=== PATIENT | male | born 1965 | race Caucasian/White ===

== ENCOUNTER → 2017-01-13 | Outpatient (CLI) | payer OTHER ==
--- NOTE | 2017-01-14 15:39 | CR ---
EXAM DATE: 01/13/17 PATIENT'S AGE: 51 Patient: REJI JEFFERSONKATHYA Facility: [place], [place] Site . Site : 1965 Study: XRay Extremity thumb [id number]/9/2017 4:36:00 PM Ordering Physician: Rafael Birto Final Report: Indication: Hyperextension injury an December. Technique: Three views of the right thumb. Comparison: None. Findings: No fracture or subluxation. 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 Otherwise unremarkable. Impression: Unremarkable except for mild 1st MCP joint osteoarthritis. Dictated by Reji López MD @ Jan 14 2017 11:59AM (Electronic Signature) Report Signed by Proxy. OLIVIA
== END | disposition home or self-care (01) ==
LOC: MW.CHFP 16:18
PROVIDERS: ATTEND Physician Assistant
DX: S69.91XA Unspecified injury of right wrist, hand and finger(s), initial encounter (principal); M19.031 Primary osteoarthritis, right wrist
CPT/HCPCS: 73140-26-F5; 73140-F5

== ENCOUNTER 2020-06-22 15:42 | Observation (INO) | payer BC, OTHER ==
[2020-06-22] MEDS ORDERED: Sodium Chloride 0.9% 10 ML Syringe FLUSH PRN (16:08)
[2020-06-22] MEDS ORDERED: Sodium Chloride 0.9% 2.5 ML Syringe FLUSH PRN (16:08)
[2020-06-22] MEDS ORDERED: Sodium Chloride 0.9% 1,000 ML IV ONE (16:19)
--- NOTE | 2020-06-22 16:40 | EDM.PDOC ---
ED HPI GENERAL MEDICAL PROBLEM - General Chief Complaint: Fever Stated Complaint: HIGH FEVER/DEHYDRATED Time Seen by Provider: 06/22/20 16:07 Source of Information: Reports: Patient History Limitations: Reports: No Limitations - History of Present Illness INITIAL COMMENTS - FREE TEXT/NARRATIVE: HISTORY AND PHYSICAL: History of present illness: Patient is a 54-year-old male who presents to the emergency room with complaints of cough, shortness of breath and weakness over the past 6 to 7 days. He states he has not had an appetite and has not been eating. History of diabetes, concerned his blood sugars may be low and that he is dehydrated. He was seen today at our respiratory clinic and swabbed for COVID although he will not get these results for several days. He was called after he was discharged from the respiratory clinic and informed that he could have a lung infection and that they prescribed azithromycin, they were concerned he needed IV fluids and his blood sugar monitored. He states he was too weak and fatigued to go fill this prescription and came to the emergency room. Patient denies any fever, chills, headache, change in vision, syncope or near syncope. Denies any chest pain, back pain, abdominal pain, nausea, vomiting, diarrhea, constipation or dysuria. Has not noted any blood in urine or stool. Patient has been eating and drinking appropriately. Review of systems: As per history of present illness and below otherwise all systems reviewed and negative. Past medical history: As per history of present illness and as reviewed below otherwise noncontributory. Surgical history: As per history of present illness and as reviewed below otherwise noncontributory. Social history: See social history for further information Family history: As per history of present illness and as reviewed below otherwise noncontributory. Physical exam: General: Well developed and well nourished. Alert and orientated x 3. Nontoxic in appearance and in no acute distress. Vital signs are stable and have been reviewed by me. Nursing notes were reviewed. HEENT: Atraumatic, normocephalic, pupils equal and reactive bilaterally, negative for conjunctival pallor or scleral icterus, mucous membranes dry/tachy, trachea midline. No drooling or trismus noted. No meningeal signs. No hot potato voice noted. Lungs: Slightly diminished bilaterally to auscultation, breath sounds equal bilaterally, chest nontender. Normal work of breathing, no accessory muscles used. Heart: S1S2, regular rate and rhythm without overt murmur Abdomen: Soft, nondistended, nontender. Negative for masses or costovertebral tenderness. Pelvis: Stable nontender. Skin: Intact, warm, dry. No lesions or rashes noted. Hematologic: No petechiae or purpra. Mucosa appropriate color and normal nail bed color and refill. Extremities: Atraumatic, moves all extremities per self without difficulty or deficits, negative for cords or calf pain. Neurovascular unremarkable. Neuro: Awake, alert, oriented. Cranial nerves II through XII unremarkable. Cerebellum unremarkable. Motor and sensory unremarkable throughout. Exam nonfocal. Psychiatric: Mood and affect are appropriate. Normal thought process. Answering questions appropriately. Notes: Chest x-ray that was done earlier this afternoon shows minimal patchy airspace opacity at both bases. Could represent atelectasis or inflammatory. Pneumonia/pneumonitis, including viral disease. He has elevated D.Dimer, CT chest has been ordered to r/o PE and further investigate the CXR findings. + COVID screening, which I suspected. Patient states he is very weak and feels too weak to go home. CT shows no sign of PE. Findings are typical of COVID-19 infection, most prominently involving the inferior portion of the right lower lobe, but with involvement of both lobes in both lungs. Triple-vessel coronary calcification noted. Vital signs remained stable. Repeat blood sugar is 300 after liter of fluids. I have spoken with the patient and discussed today's findings, in addition to providing specific details for plan of care. Reassessment at the time of disposition demonstrates that the patient is in no acute distress. Dr. Morales was consulted on this patient. She is agreeable to keeping this patient for further care and management. Diagnostics: CBC, CMP, COVID, DDimer [employer]: IV fluids Impression: COVID-19 Weakness Plan: [facility] with telemetry Definitive disposition and diagnosis as appropriate pending reevaluation and review of above. - Related Data Allergies Allergy/AdvReac Type Severity Reaction Status Date / Time bee venom protein (honey bee) Allergy Anaphylactic Verified 06/22/20 16:18 Shock Home Meds: Home Meds Bitter Melon Extract 1,700 gm MC BID 04/15/14 [History] Liraglutide [Victoza 3-Iker] 1.8 mg .XX DAILY 04/15/14 [History] Pioglitazone HCl [Actos] 30 mg PO DAILY 04/15/14 [History] atorvaSTATin [Lipitor] 20 mg PO BEDTIME 04/15/14 [History] glyBURIDE/Metformin [glyBURIDE/Metformin 5-500 MG] 2 tab PO BID 04/15/14 [History] lisinopriL [Prinivil] 5 mg PO DAILY 04/15/14 [History] Diclofenac Sodium [Voltaren 1%] 1 applic TOP BID PRN #1 tube 09/06/18 [Rx] Past Medical History HEENT History: Reports: Impaired Vision Endocrine/Metabolic History: Reports: Diabetes, Type II - Infectious Disease History Infectious Disease History: Reports: Chicken Pox Social & Family History - Family History Family Medical History: Noncontributory - Caffeine Use Caffeine Use: Reports: Coffee, Energy Drinks ED ROS GENERAL - Review of Systems Review Of Systems: Comprehensive ROS is negative, except as noted in HPI. ED EXAM, GENERAL - Physical Exam Exam: See Below (See dictation) Course - Vital Signs Last Recorded V/S: Last Vital Signs Temp 97.4 F 06/22/20 17:57 Pulse 108 H 06/22/20 17:57 Resp 20 06/22/20 17:57 BP 139/78 06/22/20 17:57 Pulse Ox 97 06/22/20 17:57 - Orders/Labs/Meds Orders: Active Orders 24 hr Category Date Time Status Admission Status [Patient Status] [ADT] Stat ADT 06/22/20 19:31 Ordered Blood Glucose Check, Bedside [RC] ONETIME Care 06/22/20 18:29 Active Sodium Chloride 0.9% [Saline Flush] Med 06/22/20 16:08 Active 10 ml FLUSH ASDIRECTED PRN Sodium Chloride 0.9% [Saline Flush] Med 06/22/20 16:08 Active 2.5 ml FLUSH ASDIRECTED PRN Saline Lock Insert [OM.PC] Stat Oth 06/22/20 16:08 Ordered Medication Orders Sodium Chloride (Saline Flush) 10 ml FLUSH ASDIRECTED PRN PRN Reason: Keep Vein Open Last Admin: 06/22/20 17:10 Dose: 10 ml Documented by: MURDNIC Sodium Chloride (Saline Flush) 2.5 ml FLUSH ASDIRECTED PRN PRN Reason: Keep Vein Open Last Admin: 06/22/20 17:10 Dose: 2.5 ml Documented by: GINGER Labs: Laboratory Tests 06/22/20 06/22/20 06/22/20 Range/Units 16:36 17:09 17:09 WBC 7.13 (4.0-11.0) K/uL RBC 4.88 (4.50-5.90) M/uL Hgb 14.3 (13.0-17.0) g/dL Hct 41.0 (38.0-50.0) % MCV 84.0 (80.0-98.0) fL MCH 29.3 (27.0-32.0) pg MCHC 34.9 (31.0-37.0) g/dL RDW Std Deviation 39.5 (28.0-62.0) fl RDW Coeff of Skye 13 (11.0-15.0) % Plt Count 206 (150-400) K/uL MPV 9.70 (7.40-12.00) fL Neut % (Auto) 82.4 H (48.0-80.0) % Lymph % (Auto) 10.2 L (16.0-40.0) % [place]osa % (Auto) 7.3 (0.0-15.0) % Eos % (Auto) 0.0 (0.0-7.0) % Baso % (Auto) 0.1 (0.0-1.5) % Neut # (Auto) 5.9 H (1.4-5.7) K/uL Lymph # (Auto) 0.7 (0.6-2.4) K/uL [place] # (Auto) 0.5 (0.0-0.8) K/uL Eos # (Auto) 0.0 (0.0-0.7) K/uL Baso # (Auto) 0.0 (0.0-0.1) K/uL Nucleated RBC % 0.0 /100WBC Nucleated RBCs # 0 K/uL D-Dimer, Quantitative (0.0-0.50) mg/L FEU VBG pH 7.29 L (7.31-7.41) VBG pCO2 37 (35-45) mmHG VBG pO2 35 (30-40) mmHG VBG HCO3 18 L (22-30) mEq/L VBG Total CO2 16 L (41-51) mmol/L VBG Base Excess -8.4 L (-3.0-3.0) Sodium (136-148) mmol/L Potassium (3.5-5.1) mmol/L Chloride (98-107) mmol/L Carbon Dioxide (21.0-32.0) mmol/L BUN (7.0-18.0) mg/dL Creatinine (0.8-1.3) mg/dL Est Cr Clr Drug Dosing mL/min Estimated GFR (MDRD) ml/min Glucose (74-106) mg/dL Calcium (8.5-10.1) mg/dL Total Bilirubin (0.2-1.0) mg/dL AST (15-37) IU/L ALT (14-63) IU/L Alkaline Phosphatase (46-116) U/L Total Protein (6.4-8.2) g/dL Albumin (3.4-5.0) g/dL Globulin (2.6-4.0) g/dL Albumin/Globulin Ratio (0.9-1.6) SARS-CoV-2 RNA (MARYURI) POSITIVE H (NEGATIVE) 06/22/20 06/22/20 Range/Units 17:09 17:09 WBC (4.0-11.0) K/uL RBC (4.50-5.90) M/uL Hgb (13.0-17.0) g/dL Hct (38.0-50.0) % MCV (80.0-98.0) fL MCH (27.0-32.0) pg MCHC (31.0-37.0) g/dL RDW Std Deviation (28.0-62.0) fl RDW Coeff of Skye (11.0-15.0) % Plt Count (150-400) K/uL MPV (7.40-12.00) fL Neut % (Auto) (48.0-80.0) % Lymph % (Auto) (16.0-40.0) % [place]osa % (Auto) (0.0-15.0) % Eos % (Auto) (0.0-7.0) % Baso % (Auto) (0.0-1.5) % Neut # (Auto) (1.4-5.7) K/uL Lymph # (Auto) (0.6-2.4) K/uL [place] # (Auto) (0.0-0.8) K/uL Eos # (Auto) (0.0-0.7) K/uL Baso # (Auto) (0.0-0.1) K/uL Nucleated RBC % /100WBC Nucleated RBCs # K/uL D-Dimer, Quantitative 1.58 H (0.0-0.50) mg/L FEU VBG pH (7.31-7.41) VBG pCO2 (35-45) mmHG VBG pO2 (30-40) mmHG VBG HCO3 (22-30) mEq/L VBG Total CO2 (41-51) mmol/L VBG Base Excess (-3.0-3.0) Sodium 130 L (136-148) mmol/L Potassium 4.4 (3.5-5.1) mmol/L Chloride 94 L (98-107) mmol/L Carbon Dioxide 18.3 L (21.0-32.0) mmol/L BUN 19 H (7.0-18.0) mg/dL Creatinine 1.0 (0.8-1.3) mg/dL Est Cr Clr Drug Dosing 97.04 mL/min Estimated GFR (MDRD) > 60.0 ml/min Glucose 337 H (74-106) mg/dL Calcium 8.8 (8.5-10.1) mg/dL Total Bilirubin 0.6 (0.2-1.0) mg/dL AST 17 (15-37) IU/L ALT 28 (14-63) IU/L Alkaline Phosphatase 124 H (46-116) U/L Total Protein 7.5 (6.4-8.2) g/dL Albumin 3.0 L (3.4-5.0) g/dL Globulin 4.5 H (2.6-4.0) g/dL Albumin/Globulin Ratio 0.7 L (0.9-1.6) SARS-CoV-2 RNA (MARYURI) (NEGATIVE) Meds: Medications Generic Name Dose Route Start Last Admin Trade Name Freq PRN Reason Stop Dose Admin Sodium Chloride 10 ml 06/22/20 16:08 06/22/20 17:10 Saline Flush FLUSH 10 ml ASDIRECTED PRN Administration Keep Vein Open Sodium Chloride 2.5 ml 06/22/20 16:08 06/22/20 17:10 Saline Flush FLUSH 2.5 ml ASDIRECTED PRN Administration Keep Vein Open Discontinued Medications Generic Name Dose Route Start Last Admin Trade Name Freq PRN Reason Stop Dose Admin Sodium Chloride 1,000 mls @ 999 mls/hr 06/22/20 16:19 06/22/20 17:10 Normal Saline IV 06/22/20 17:19 999 mls/hr STAT ONE Administration Iopamidol 100 ml 06/22/20 18:20 06/22/20 18:20 Isovue Multipack-370 (76%) IVPUSH 06/22/20 18:21 100 ml ONETIME ONE Administration Departure - Departure Time of Disposition: 19:37 Disposition: Refer to Observation Clinical Impression: COVID-19, Weakness - Discharge Information Referrals: PCP,None [Primary Care Provider] - Forms: ED Department Discharge Sepsis Event Note (ED) - Evaluation Sepsis Screening Result: No Definite Risk - Focused Exam Vital Signs: Vital Signs Temp Pulse Resp BP Pulse Ox 06/22/20 17:57 97.4 F 108 H 20 139/78 97 06/22/20 16:15 97.0 F 119 H 16 140/72 96 - My Orders Last 24 Hours: My Active Orders 06/22/20 16:08 Sodium Chloride 0.9% [Saline Flush] 10 ml FLUSH ASDIRECTED PRN Sodium Chloride 0.9% [Saline Flush] 2.5 ml FLUSH ASDIRECTED PRN Saline Lock Insert [OM.PC] Stat 06/22/20 18:29 Blood Glucose Check, Bedside [RC] ONETIME 06/22/20 19:31 Admission Status [Patient Status] [ADT] Stat - Assessment/Plan Last 24 Hours: My Active Orders 06/22/20 16:08 Sodium Chloride 0.9% [Saline Flush] 10 ml FLUSH ASDIRECTED PRN Sodium Chloride 0.9% [Saline Flush] 2.5 ml FLUSH ASDIRECTED PRN Saline Lock Insert [OM.PC] Stat 06/22/20 18:29 Blood Glucose Check, Bedside [RC] ONETIME 06/22/20 19:31 Admission Status [Patient Status] [ADT] Stat
[2020-06-22 17:43] LABS: BLOOD UREA NITROGEN,BUN 19 mg/dL (7.0-18.0); CARBON DIOXIDE,CO2 18.3 mmol/L (21.0-32.0); CHLORIDE,CL 94 mmol/L (98-107); GLUCOSE RANDOM 337 mg/dL (74-106); POTASSIUM,K 4.4 mmol/L (3.5-5.1); SODIUM,NA 130 mmol/L (136-148)
[2020-06-22] MEDS ORDERED: Iopamidol 755 MG/ML 500 ML Multipack Bottle IVPUSH ONE (18:20)
--- NOTE | 2020-06-22 19:28 | CT ---
INDICATION: Dyspnea. COVID-19 positive. COMPARISON: Chest radiograph from earlier today at 1230 hours. TECHNIQUE: CT examination of the chest was performed with the uneventful intravenous administration of 100 cc of Isovue 370 while 1 and 3 mm thick axial sections were obtained through the pulmonary arteries. Please note that all CT scans at this facility use dose modulation, iterative reconstruction, and/or weight-based dosing when appropriate to reduce radiation dose to as low as reasonably achievable. FINDINGS: : There is no sign of pulmonary embolism, with normal enhancement and branching of the pulmonary arteries. Moderate patchy areas of crazy paving peripheral consolidation in the posterior right lower lobe inferiorly, with smaller, moderate areas of peripheral crazy paving consolidation in the superior segments of both lower lobes and the infrahilar left lower lobe. Additional moderate ground-glass consolidation in the posterior aspect of the left upper lobe in the infrahilar region extending to the major fissure. Smaller patchy central and peripheral ground-glass infiltrates in the right upper lobe and right middle lobe. Relative sparing of the superior portion of the left upper lobe. Findings are typical for COVID-19 infection. Moderate subcarinal lymphadenopathy with a lymph node with short axis diameter of 15 millimeters. Mild prominence of left perivascular lymph nodes, not large enough to be described as lymphadenopathy. Mild right superior hilar lymphadenopathy with a lymph node with short axis diameter of 11 millimeters. Top normal left inferior hilar lymph node with short axis diameter of 10 millimeters. The lymphadenopathy is nonspecific and is probably reactive. There is prominent LAD and moderate LCX coronary calcification. There is mild RCA coronary calcification. The heart is otherwise normal in appearance for the patient`s age, as are the aorta and other ascending great vessels. There is no sign of supraclavicular or axillary mass or adenopathy. The visualized superior liver, spleen, pancreas, kidneys, and adrenals are normal in appearance. Clips are seen in the gall bladder fossa from cholecystectomy. The osseous structures are normal in appearance for the patient`s age. IMPRESSION: No sign of pulmonary embolism. Findings typical of COVID-19 infection, most prominently involving the inferior portion of the right lower lobe, but with involvement of all the lobes in both lungs as described above. Mild subcarinal mediastinal and right hilar lymphadenopathy, probably reactive. Triple-vessel coronary calcification, including prominent LAD calcification. Status post cholecystectomy. Please note that all CT scans at this facility use dose modulation, iterative reconstruction, and/or weight-based dosing when appropriate to reduce radiation dose to as low as reasonably achievable. Dictated by Luther Antunez MD @ Jun 22 2020 7:18PM Signed by Dr. Luther Antunez @ Jun 22 2020 7:27PM
[2020-06-22] MEDS ORDERED: 50% Dextrose in Water 50 ML Syringe IV PRN ×3 (19:40→21:45)
[2020-06-22] MEDS ORDERED: Glucagon,Human Recombinant 1 MG Vial IM PRN ×3 (19:40→21:45)
--- NOTE | 2020-06-22 19:41 | PCM.HP.2 ---
H&P History of Present Illness - General Date of Service: 06/22/20 Admit Problem/Dx: Admission Diagnosis/Problem Admission Diagnosis/Problem Viral respiratory infection - History of Present Illness Initial Comments - Free Text/Narative: Patient is a 54-year-old male with PMH of DM, CAD, HLD who presents to the e mergency room with complaints of cough, shortness of breath and weakness over last 1 week, patient states that he feels very weak , he has not been eating and drinking as much. States it started with cough and congestion, with some fever, tried OTC meds but his fever didnt break and symptoms got worse. He thought "something wasn't right" so he went to the respiratory clinic today to get tested for covid, results pending, He was called after he was discharged from the respiratory clinic and informed that he could have a lung infection and that they prescribed azithromycin, He states he was too weak and fatigued to go fill this prescription and came to the emergency room. Patient denies any fever, chills, headache, change in vision, syncope or near syncope, any chest pain, back pain, abdominal pain, nausea, vomiting, diarrhea, constipation or dysuria. Has not noted any blood in urine or stool. Patient has been eating and drinking appropriately. Chest x-ray that was done earlier this afternoon shows minimal patchy airspace opacity at both bases. Could represent atelectasis or inflammatory. Pneumonia/pneumonitis, including viral disease. He has elevated D.Dimer, + COVID screening, CT shows no sign of PE. Findings are typical of COVID-19 infection, most prominently involving the inferior portion of the right lower lobe, but with involvement of both lobes in both lungs. Triple-vessel coronary calcification noted. Vital signs remained stable. Repeat blood sugar is [address] liter of fluids. which I suspected. Patient states he is very weak and feels too weak to go home and fears his blood sugars will drop since he isnt eating much. hence patient was admitted for further management. - Related Data Allergies/Adverse Reactions: Allergies Allergy/AdvReac Type Severity Reaction Status Date / Time bee venom protein (honey bee) Allergy Anaphylactic Verified 06/22/20 20:45 Shock Home Medications: Home Meds Bitter Melon Extract 1,700 gm MC BID 04/15/14 [History] Pioglitazone HCl [Actos] 30 mg PO DAILY 04/15/14 [History] atorvaSTATin [Lipitor] 80 mg PO BEDTIME 04/15/14 [History] glyBURIDE/Metformin [glyBURIDE/Metformin 5-500 MG] 2 tab PO BID 04/15/14 [History] Diclofenac Sodium [Voltaren 1%] 1 applic TOP BID PRN #1 tube 09/06/18 [Rx] Insulin Detemir [Levemir] 80 unit SUBCUT DAILY 06/22/20 [History] Losartan Potassium 50 mg PO 06/22/20 [History] Omeprazole 20 mg PO 06/22/20 [History] Past Medical History HEENT History: Reports: Impaired Vision Endocrine/Metabolic History: Reports: Diabetes, Type II - Infectious Disease History Infectious Disease History: Reports: Chicken Pox Social & Family History - Family History Family Medical History: Noncontributory - Tobacco Use Tobacco Use Status *Q: Never Tobacco User - Caffeine Use Caffeine Use: Reports: Coffee, Energy Drinks - Recreational Drug Use Recreational Drug Use: No H&P Review of Systems - Review of Systems: Review Of Systems: Comprehensive ROS is negative, except as noted in HPI. Exam - Exam Exam: See Below - Vital Signs Vital Signs: Last Vital Signs Temp 36.3 C 06/22/20 17:57 Pulse 108 H 06/22/20 17:57 Resp 20 06/22/20 17:57 BP 139/78 06/22/20 17:57 Pulse Ox 97 06/22/20 17:57 Weight: 104.78 kg - Exam Quality Assessment: No: Supplemental Oxygen General: Alert, Oriented HEENT: Conjunctiva Clear Neck: Supple, Trachea Midline Lungs: Clear to Auscultation, Normal Respiratory Effort, Rales Cardiovascular: Regular Rate, Regular Rhythm, Normal S1, Normal S2 GI/Abdominal Exam: Normal Bowel Sounds, Soft, Non-Tender - Patient Data Lab Results Last 24 hrs: Laboratory Results - last 24 hr 06/22/20 06/22/20 06/22/20 Range/Units 16:36 17:09 17:09 WBC 7.13 (4.0-11.0) K/uL RBC 4.88 (4.50-5.90) M/uL Hgb 14.3 (13.0-17.0) g/dL Hct 41.0 (38.0-50.0) % MCV 84.0 (80.0-98.0) fL MCH 29.3 (27.0-32.0) pg MCHC 34.9 (31.0-37.0) g/dL RDW Std Deviation 39.5 (28.0-62.0) fl RDW Coeff of Skye 13 (11.0-15.0) % Plt Count 206 (150-400) K/uL MPV 9.70 (7.40-12.00) fL Neut % (Auto) 82.4 H (48.0-80.0) % Lymph % (Auto) 10.2 L (16.0-40.0) % [place] % (Auto) 7.3 (0.0-15.0) % Eos % (Auto) 0.0 (0.0-7.0) % Baso % (Auto) 0.1 (0.0-1.5) % Neut # (Auto) 5.9 H (1.4-5.7) K/uL Lymph # (Auto) 0.7 (0.6-2.4) K/uL [place] # (Auto) 0.5 (0.0-0.8) K/uL Eos # (Auto) 0.0 (0.0-0.7) K/uL Baso # (Auto) 0.0 (0.0-0.1) K/uL Nucleated RBC % 0.0 /100WBC Nucleated RBCs # 0 K/uL D-Dimer, Quantitative (0.0-0.50) mg/L FEU VBG pH 7.29 L (7.31-7.41) VBG pCO2 37 (35-45) mmHG VBG pO2 35 (30-40) mmHG VBG HCO3 18 L (22-30) mEq/L VBG Total CO2 16 L (41-51) mmol/L VBG Base Excess -8.4 L (-3.0-3.0) Sodium (136-148) mmol/L Potassium (3.5-5.1) mmol/L Chloride (98-107) mmol/L Carbon Dioxide (21.0-32.0) mmol/L BUN (7.0-18.0) mg/dL Creatinine (0.8-1.3) mg/dL Est Cr Clr Drug Dosing mL/min Estimated GFR (MDRD) ml/min Glucose (74-106) mg/dL Calcium (8.5-10.1) mg/dL Total Bilirubin (0.2-1.0) mg/dL AST (15-37) IU/L ALT (14-63) IU/L Alkaline Phosphatase (46-116) U/L Total Protein (6.4-8.2) g/dL Albumin (3.4-5.0) g/dL Globulin (2.6-4.0) g/dL Albumin/Globulin Ratio (0.9-1.6) SARS-CoV-2 RNA (MARYURI) POSITIVE H (NEGATIVE) 06/22/20 06/22/20 Range/Units 17:09 17:09 WBC (4.0-11.0) K/uL RBC (4.50-5.90) M/uL Hgb (13.0-17.0) g/dL Hct (38.0-50.0) % MCV (80.0-98.0) fL MCH (27.0-32.0) pg MCHC (31.0-37.0) g/dL RDW Std Deviation (28.0-62.0) fl RDW Coeff of Skye (11.0-15.0) % Plt Count (150-400) K/uL MPV (7.40-12.00) fL Neut % (Auto) (48.0-80.0) % Lymph % (Auto) (16.0-40.0) % [place] % (Auto) (0.0-15.0) % Eos % (Auto) (0.0-7.0) % Baso % (Auto) (0.0-1.5) % Neut # (Auto) (1.4-5.7) K/uL Lymph # (Auto) (0.6-2.4) K/uL [place] # (Auto) (0.0-0.8) K/uL Eos # (Auto) (0.0-0.7) K/uL Baso # (Auto) (0.0-0.1) K/uL Nucleated RBC % /100WBC Nucleated RBCs # K/uL D-Dimer, Quantitative 1.58 H (0.0-0.50) mg/L FEU VBG pH (7.31-7.41) VBG pCO2 (35-45) mmHG VBG pO2 (30-40) mmHG VBG HCO3 (22-30) mEq/L VBG Total CO2 (41-51) mmol/L VBG Base Excess (-3.0-3.0) Sodium 130 L (136-148) mmol/L Potassium 4.4 (3.5-5.1) mmol/L Chloride 94 L (98-107) mmol/L Carbon Dioxide 18.3 L (21.0-32.0) mmol/L BUN 19 H (7.0-18.0) mg/dL Creatinine 1.0 (0.8-1.3) mg/dL Est Cr Clr Drug Dosing 97.04 mL/min Estimated GFR (MDRD) > 60.0 ml/min Glucose 337 H (74-106) mg/dL Calcium 8.8 (8.5-10.1) mg/dL Total Bilirubin 0.6 (0.2-1.0) mg/dL AST 17 (15-37) IU/L ALT 28 (14-63) IU/L Alkaline Phosphatase 124 H (46-116) U/L Total Protein 7.5 (6.4-8.2) g/dL Albumin 3.0 L (3.4-5.0) g/dL Globulin 4.5 H (2.6-4.0) g/dL Albumin/Globulin Ratio 0.7 L (0.9-1.6) SARS-CoV-2 RNA ([facility]) (NEGATIVE) Result Diagrams: 06/22/20 17:09 06/22/20 17:09 Sepsis Event Note - Evaluation Sepsis Screening Result: No Definite Risk - Focused Exam Vital Signs: Vital Signs Temp Pulse Resp BP Pulse Ox 06/22/20 17:57 36.3 C 108 H 20 139/78 97 06/22/20 16:15 36.1 C 119 H 16 140/72 96 - Problem List (1) Diabetes SNOMED Code(s): 99268001 ICD Code: E11.9 - TYPE 2 DIABETES MELLITUS WITHOUT COMPLICATIONS Status: Acute Current Visit: Yes (2) CAD (coronary artery disease) SNOMED Code(s): 07152216 ICD Code: I25.10 - ATHSCL HEART DISEASE OF [place] CORONARY ARTERY W/O ANG PCTRS Status: Acute Current Visit: Yes (3) COVID-19 SNOMED Code(s): 940682427 ICD Code: U07.1 - COVID-19 Status: Acute Current Visit: Yes (4) Weakness SNOMED Code(s): 70687233 ICD Code: R53.1 - WEAKNESS Status: Acute Current Visit: Yes Problem List Initiated/Reviewed/Updated: Yes Orders Last 24hrs: Active Orders 24 hr Category Date Time Status Admission Status [Patient Status] [ADT] Stat ADT 06/22/20 19:31 Active Blood Glucose Check, Bedside [RC] ONETIME Care 06/22/20 18:29 Active TROPONIN I [CHEM] Stat Lab 06/22/20 19:40 Ordered Dextrose 50% in Water Med 06/22/20 19:40 Ordered 50 ml IV ASDIRECTED PRN Glucagon,Human Recombinant [GlucaGen] Med 06/22/20 19:40 Ordered 1 mg IM ASDIRECTED PRN Insulin Aspart [NovoLOG] Med 06/23/20 07:30 Ordered See Protocol SUBCUT TIDAC Sodium Chloride 0.9% [Saline Flush] Med 06/22/20 16:08 Active 10 ml FLUSH ASDIRECTED PRN Sodium Chloride 0.9% [Saline Flush] Med 06/22/20 16:08 Active 2.5 ml FLUSH ASDIRECTED PRN Saline Lock Insert [OM.PC] Stat Oth 06/22/20 16:08 Ordered Medication Orders Sodium Chloride (Saline Flush) 10 ml FLUSH ASDIRECTED PRN PRN Reason: Keep Vein Open Last Admin: 06/22/20 17:10 Dose: 10 ml Documented by: GINGER Sodium Chloride (Saline Flush) 2.5 ml FLUSH ASDIRECTED PRN PRN Reason: Keep Vein Open Last Admin: 06/22/20 17:10 Dose: 2.5 ml Documented by: MURDNIC Assessment/Plan Comment:: 54 y/o M admitted for genralized weankess, loss of appetite COVID positive IV fluids 1 lts total SSI Levemir at bedtime Lovenox for DVT ppx Accu-check TID with meals cont supportive care
[2020-06-22] MEDS ORDERED: Lactated Ringers 1,000 ML IV SCH (19:45)
[2020-06-22] MEDS ORDERED: Insulin Aspart 100 Units/ML 3 ML Pen SUBCUT ONE (21:30)
[2020-06-22] MEDS ORDERED: Albuterol/Ipratropium 4 GM Inhalation Spray INH PRN (22:09)
[2020-06-22] MEDS ORDERED: Azithromycin 250 MG Tab PO SCH (22:15)
[2020-06-22] MEDS ORDERED: Insulin Detemir 100 Units/ML 3 ML Pen SUBCUT SCH (22:30)
[2020-06-23] MEDS: Acetaminophen 325 MG Tab PO PRN ×2 (04:55→12:17)
[2020-06-23 06:16] LABS: BLOOD UREA NITROGEN,BUN 14 mg/dL (7.0-18.0); CARBON DIOXIDE,CO2 24.7 mmol/L (21.0-32.0); CHLORIDE,CL 99 mmol/L (98-107); GLUCOSE RANDOM 304 mg/dL (74-106); POTASSIUM,K 3.8 mmol/L (3.5-5.1); SODIUM,NA 133 mmol/L (136-148)
[2020-06-23] MEDS: Insulin Aspart 100 Units/ML 3 ML Pen SUBCUT SCH ×2 (07:53→19:46)
[2020-06-23] MEDS ORDERED: Enoxaparin 40 MG/0.4 ML Syringe SUBCUT SCH (09:00)
[2020-06-23] MEDS ORDERED: Dexamethasone 4 MG Tab PO SCH (10:30)
[2020-06-23] MEDS ORDERED: Magnesium Sulfate/Water 2 GM/50 ML BAG IV ONE (11:12)
--- NOTE | 2020-06-23 12:26 | PCM.DCSUM1 ---
Discharge Summary - Hospital Course Free Text/Narrative:: carmen is a 54-year-old male with PMH of DM, CAD, HLD who presents to the emergency room with complaints of cough, shortness of breath and weakness over last 1 week, patient states that he feels very weak , he has not been eating and drinking as much. States it started with cough and congestion, with some fever, tried OTC meds but his fever didnt break and symptoms got worse. He thought "something wasn't right" so he went to the respiratory clinic today to get tested for covid, results pending, He was called after he was discharged from the respiratory clinic and informed that he could have a lung infection and that they prescribed azithromycin, He states he was too weak and fatigued to go fill this prescription and came to the emergency room. Patient denies any fever, chills, headache, change in vision, syncope or near syncope, any chest pain, back pain, abdominal pain, nausea, vomiting, diarrhea, constipation or dysuria. Has not noted any blood in urine or stool. Patient has been eating and drinking appropriately. Chest x-ray that was done earlier this afternoon shows minimal patchy airspace opacity at both bases. Could represent atelectasis or inflammatory. Pneumonia/pneumonitis, including viral disease. He has elevated D.Dimer, + COVID screening, CT shows no sign of PE. Findings are typical of COVID-19 infection, most prominently involving the inferior portion of the right lower lobe, but with involvement of both lobes in both lungs. Triple-vessel coronary calcification noted. Vital signs remained stable. Repeat blood sugar is 300 after liter of fluids. which I suspected. Patient states he is very weak and feels too weak to go home and fears his blood sugars will drop since he isnt eating much. hence patient was admitted for further management. Overnight patient recocved some IV fluids, his oxygen saturation maintain well on RA, he was feeling much better next day, was started on Oral dexamethasone. His ambulatory pulse oxy was checked, >94%. Patient was medically stable for dc. Recommended to isolate at home and fu with PCP. He was also recommenced to fu with cardiology for the Calcified triple vessel disease as seen on chest CTA, - Discharge Data Discharge Date: 06/23/20 Discharge Disposition: Home, Self-Care 01 Condition: Good - Referral to Home Health Primary Care Physician: PCP None - Discharge Diagnosis/Problem(s) (1) Diabetes SNOMED Code(s): 53615874 ICD Code: E11.9 - TYPE 2 DIABETES MELLITUS WITHOUT COMPLICATIONS Status: Acute Current Visit: Yes (2) CAD (coronary artery disease) SNOMED Code(s): 70445662 ICD Code: I25.10 - ATHSCL HEART DISEASE OF [place] CORONARY ARTERY W/O ANG PCTRS Status: Acute Current Visit: Yes (3) COVID-19 SNOMED Code(s): 198675888 ICD Code: U07.1 - COVID-19 Status: Acute Current Visit: Yes (4) Weakness SNOMED Code(s): 99004453 ICD Code: R53.1 - WEAKNESS Status: Acute Current Visit: Yes - Patient Summary/Data Consults: Consultations 06/23/20 09:45 PT Evaluation and Treatment [CONS] Routine - Discharge Plan Home Medications: Home Meds Bitter Melon Extract 1,700 gm MC BID 04/15/14 [History] Pioglitazone HCl [Actos] 30 mg PO DAILY 04/15/14 [History] atorvaSTATin [Lipitor] 80 mg PO BEDTIME 04/15/14 [History] glyBURIDE/Metformin [glyBURIDE/Metformin 5-500 MG] 2 tab PO BID 04/15/14 [History] Diclofenac Sodium [Voltaren 1%] 1 applic TOP BID PRN #1 tube 09/06/18 [Rx] Insulin Detemir [Levemir] 80 unit SUBCUT DAILY 06/22/20 [History] Losartan Potassium 50 mg PO 06/22/20 [History] Omeprazole 20 mg PO 06/22/20 [History] Forms: ED Department Discharge Referrals: PCP,None [Primary Care Provider] - - Discharge Summary/Plan Comment DC Time >30 min.: No - Patient Data Vitals - Most Recent: Last Vital Signs Temp 36.2 C 06/23/20 11:44 Pulse 112 H 06/23/20 11:44 Resp 20 06/23/20 11:44 BP 98/55 L 06/23/20 11:44 Pulse Ox 95 06/23/20 11:44 Weight - Most Recent: 104.78 kg I&O - Last 24 hours: Intake & Output 06/22/20 06/23/20 06/23/20 22:59 06:59 14:59 Intake Total 1036 Output Total 1900 Balance -864 Lab Results - Last 24 hrs: Laboratory Results - last 24 hr 06/22/20 06/22/20 06/22/20 Range/Units 16:36 17:09 17:09 WBC 7.13 (4.0-11.0) K/uL RBC 4.88 (4.50-5.90) M/uL Hgb 14.3 (13.0-17.0) g/dL Hct 41.0 (38.0-50.0) % MCV 84.0 (80.0-98.0) fL MCH 29.3 (27.0-32.0) pg MCHC 34.9 (31.0-37.0) g/dL RDW Std Deviation 39.5 (28.0-62.0) fl RDW Coeff of Skye 13 (11.0-15.0) % Plt Count 206 (150-400) K/uL MPV 9.70 (7.40-12.00) fL Neut % (Auto) 82.4 H (48.0-80.0) % Lymph % (Auto) 10.2 L (16.0-40.0) % [place] % (Auto) 7.3 (0.0-15.0) % Eos % (Auto) 0.0 (0.0-7.0) % Baso % (Auto) 0.1 (0.0-1.5) % Neut # (Auto) 5.9 H (1.4-5.7) K/uL Lymph # (Auto) 0.7 (0.6-2.4) K/uL [place] # (Auto) 0.5 (0.0-0.8) K/uL Eos # (Auto) 0.0 (0.0-0.7) K/uL Baso # (Auto) 0.0 (0.0-0.1) K/uL Nucleated RBC % 0.0 /100WBC Nucleated RBCs # 0 K/uL ESR (0-19) mm/hr D-Dimer, Quantitative (0.0-0.50) mg/L FEU VBG pH 7.29 L (7.31-7.41) VBG pCO2 37 (35-45) mmHG VBG pO2 35 (30-40) mmHG VBG HCO3 18 L (22-30) mEq/L VBG Total CO2 16 L (41-51) mmol/L VBG Base Excess -8.4 L (-3.0-3.0) Sodium (136-148) mmol/L Potassium (3.5-5.1) mmol/L Chloride (98-107) mmol/L Carbon Dioxide (21.0-32.0) mmol/L BUN (7.0-18.0) mg/dL Creatinine (0.8-1.3) mg/dL Est Cr Clr Drug Dosing mL/min Estimated GFR (MDRD) ml/min Glucose (74-106) mg/dL POC Glucose (60-110) mg/dL Calcium (8.5-10.1) mg/dL Phosphorus (2.6-4.7) mg/dL Magnesium (1.8-2.4) mg/dL Ferritin (26-388) ng/mL Total Bilirubin (0.2-1.0) mg/dL AST (15-37) IU/L ALT (14-63) IU/L Alkaline Phosphatase (46-116) U/L Lactate Dehydrogenase (81-234) U/L Troponin I (0.000-0.056) ng/mL C-Reactive Protein (0.00-0.90) mg/dL Total Protein (6.4-8.2) g/dL Albumin (3.4-5.0) g/dL Globulin (2.6-4.0) g/dL Albumin/Globulin Ratio (0.9-1.6) SARS-CoV-2 RNA (MARYURI) POSITIVE H (NEGATIVE) 06/22/20 06/22/20 06/22/20 Range/Units 17:09 17:09 17:09 WBC (4.0-11.0) K/uL RBC (4.50-5.90) M/uL Hgb (13.0-17.0) g/dL Hct (38.0-50.0) % MCV (80.0-98.0) fL MCH (27.0-32.0) pg MCHC (31.0-37.0) g/dL RDW Std Deviation (28.0-62.0) fl RDW Coeff of Skye (11.0-15.0) % Plt Count (150-400) K/uL MPV (7.40-12.00) fL Neut % (Auto) (48.0-80.0) % Lymph % (Auto) (16.0-40.0) % [place] % (Auto) (0.0-15.0) % Eos % (Auto) (0.0-7.0) % Baso % (Auto) (0.0-1.5) % Neut # (Auto) (1.4-5.7) K/uL Lymph # (Auto) (0.6-2.4) K/uL [place] # (Auto) (0.0-0.8) K/uL Eos # (Auto) (0.0-0.7) K/uL Baso # (Auto) (0.0-0.1) K/uL Nucleated RBC % /100WBC Nucleated RBCs # K/uL ESR (0-19) mm/hr D-Dimer, Quantitative 1.58 H (0.0-0.50) mg/L FEU VBG pH (7.31-7.41) VBG pCO2 (35-45) mmHG VBG pO2 (30-40) mmHG VBG HCO3 (22-30) mEq/L VBG Total CO2 (41-51) mmol/L VBG Base Excess (-3.0-3.0) Sodium 130 L (136-148) mmol/L Potassium 4.4 (3.5-5.1) mmol/L Chloride 94 L (98-107) mmol/L Carbon Dioxide 18.3 L (21.0-32.0) mmol/L BUN 19 H (7.0-18.0) mg/dL Creatinine 1.0 (0.8-1.3) mg/dL Est Cr Clr Drug Dosing 97.04 mL/min Estimated GFR (MDRD) > 60.0 ml/min Glucose 337 H (74-106) mg/dL POC Glucose (60-110) mg/dL Calcium 8.8 (8.5-10.1) mg/dL Phosphorus (2.6-4.7) mg/dL Magnesium (1.8-2.4) mg/dL Ferritin (26-388) ng/mL Total Bilirubin 0.6 (0.2-1.0) mg/dL AST 17 (15-37) IU/L ALT 28 (14-63) IU/L Alkaline Phosphatase 124 H (46-116) U/L Lactate Dehydrogenase 305 H (81-234) U/L Troponin I < 0.050 (0.000-0.056) ng/mL C-Reactive Protein 9.00 H (0.00-0.90) mg/dL Total Protein 7.5 (6.4-8.2) g/dL Albumin 3.0 L (3.4-5.0) g/dL Globulin 4.5 H (2.6-4.0) g/dL Albumin/Globulin Ratio 0.7 L (0.9-1.6) SARS-CoV-2 RNA ([facility]) (NEGATIVE) 06/22/20 06/22/20 06/22/20 Range/Units 17:09 17:09 17:09 WBC (4.0-11.0) K/uL RBC (4.50-5.90) M/uL Hgb (13.0-17.0) g/dL Hct (38.0-50.0) % MCV (80.0-98.0) fL MCH (27.0-32.0) pg MCHC (31.0-37.0) g/dL RDW Std Deviation (28.0-62.0) fl RDW Coeff of Skye (11.0-15.0) % Plt Count (150-400) K/uL MPV (7.40-12.00) fL Neut % (Auto) (48.0-80.0) % Lymph % (Auto) (16.0-40.0) % [place] % (Auto) (0.0-15.0) % Eos % (Auto) (0.0-7.0) % Baso % (Auto) (0.0-1.5) % Neut # (Auto) (1.4-5.7) K/uL Lymph # (Auto) (0.6-2.4) K/uL [place] # (Auto) (0.0-0.8) K/uL Eos # (Auto) (0.0-0.7) K/uL Baso # (Auto) (0.0-0.1) K/uL Nucleated RBC % /100WBC Nucleated RBCs # K/uL ESR 63 H (0-19) mm/hr D-Dimer, Quantitative (0.0-0.50) mg/L FEU VBG pH (7.31-7.41) VBG pCO2 (35-45) mmHG VBG pO2 (30-40) mmHG VBG HCO3 (22-30) mEq/L VBG Total CO2 (41-51) mmol/L VBG Base Excess (-3.0-3.0) Sodium (136-148) mmol/L Potassium (3.5-5.1) mmol/L Chloride (98-107) mmol/L Carbon Dioxide (21.0-32.0) mmol/L BUN (7.0-18.0) mg/dL Creatinine (0.8-1.3) mg/dL Est Cr Clr Drug Dosing mL/min Estimated GFR (MDRD) ml/min Glucose (74-106) mg/dL POC Glucose (60-110) mg/dL Calcium (8.5-10.1) mg/dL Phosphorus 3.4 (2.6-4.7) mg/dL Magnesium 1.8 (1.8-2.4) mg/dL Ferritin 701 H (26-388) ng/mL Total Bilirubin (0.2-1.0) mg/dL AST (15-37) IU/L ALT (14-63) IU/L Alkaline Phosphatase (46-116) U/L Lactate Dehydrogenase (81-234) U/L Troponin I (0.000-0.056) ng/mL C-Reactive Protein (0.00-0.90) mg/dL Total Protein (6.4-8.2) g/dL Albumin (3.4-5.0) g/dL Globulin (2.6-4.0) g/dL Albumin/Globulin Ratio (0.9-1.6) SARS-CoV-2 RNA ([facility]) (NEGATIVE) 06/22/20 06/22/20 06/23/20 Range/Units 19:11 20:34 05:15 WBC 5.31 (4.0-11.0) K/uL RBC 4.28 L (4.50-5.90) M/uL Hgb 12.4 L (13.0-17.0) g/dL Hct 35.8 L (38.0-50.0) % MCV 83.6 (80.0-98.0) fL MCH 29.0 (27.0-32.0) pg MCHC 34.6 (31.0-37.0) g/dL RDW Std Deviation 39.5 (28.0-62.0) fl RDW Coeff of Skye 13 (11.0-15.0) % Plt Count 210 (150-400) K/uL MPV 9.70 (7.40-12.00) fL Neut % (Auto) 66.6 (48.0-80.0) % Lymph % (Auto) 22.6 (16.0-40.0) % [place] % (Auto) 9.8 (0.0-15.0) % Eos % (Auto) 0.8 (0.0-7.0) % Baso % (Auto) 0.2 (0.0-1.5) % Neut # (Auto) 3.5 (1.4-5.7) K/uL Lymph # (Auto) 1.2 (0.6-2.4) K/uL [place] # (Auto) 0.5 (0.0-0.8) K/uL Eos # (Auto) 0.0 (0.0-0.7) K/uL Baso # (Auto) 0.0 (0.0-0.1) K/uL Nucleated RBC % 0.0 /100WBC Nucleated RBCs # 0 K/uL ESR (0-19) mm/hr D-Dimer, Quantitative (0.0-0.50) mg/L FEU VBG pH (7.31-7.41) VBG pCO2 (35-45) mmHG VBG pO2 (30-40) mmHG VBG HCO3 (22-30) mEq/L VBG Total CO2 (41-51) mmol/L VBG Base Excess (-3.0-3.0) Sodium (136-148) mmol/L Potassium (3.5-5.1) mmol/L Chloride (98-107) mmol/L Carbon Dioxide (21.0-32.0) mmol/L BUN (7.0-18.0) mg/dL Creatinine (0.8-1.3) mg/dL Est Cr Clr Drug Dosing mL/min Estimated GFR (MDRD) ml/min Glucose (74-106) mg/dL POC Glucose 300 H 333 H (60-110) mg/dL Calcium (8.5-10.1) mg/dL Phosphorus (2.6-4.7) mg/dL Magnesium (1.8-2.4) mg/dL Ferritin (26-388) ng/mL Total Bilirubin (0.2-1.0) mg/dL AST (15-37) IU/L ALT (14-63) IU/L Alkaline Phosphatase (46-116) U/L Lactate Dehydrogenase (81-234) U/L Troponin I (0.000-0.056) ng/mL C-Reactive Protein (0.00-0.90) mg/dL Total Protein (6.4-8.2) g/dL Albumin (3.4-5.0) g/dL Globulin (2.6-4.0) g/dL Albumin/Globulin Ratio (0.9-1.6) SARS-CoV-2 RNA ([facility]) (NEGATIVE) 06/23/20 06/23/20 Range/Units 05:15 06:22 WBC (4.0-11.0) K/uL RBC (4.50-5.90) M/uL Hgb (13.0-17.0) g/dL Hct (38.0-50.0) % MCV (80.0-98.0) fL MCH (27.0-32.0) pg MCHC (31.0-37.0) g/dL RDW Std Deviation (28.0-62.0) fl RDW Coeff of Skye (11.0-15.0) % Plt Count (150-400) K/uL MPV (7.40-12.00) fL Neut % (Auto) (48.0-80.0) % Lymph % (Auto) (16.0-40.0) % [place] % (Auto) (0.0-15.0) % Eos % (Auto) (0.0-7.0) % Baso % (Auto) (0.0-1.5) % Neut # (Auto) (1.4-5.7) K/uL Lymph # (Auto) (0.6-2.4) K/uL [place] # (Auto) (0.0-0.8) K/uL Eos # (Auto) (0.0-0.7) K/uL Baso # (Auto) (0.0-0.1) K/uL Nucleated RBC % /100WBC Nucleated RBCs # K/uL ESR (0-19) mm/hr D-Dimer, Quantitative (0.0-0.50) mg/L FEU VBG pH (7.31-7.41) VBG pCO2 (35-45) mmHG VBG pO2 (30-40) mmHG VBG HCO3 (22-30) mEq/L VBG Total CO2 (41-51) mmol/L VBG Base Excess (-3.0-3.0) Sodium 133 L (136-148) mmol/L Potassium 3.8 (3.5-5.1) mmol/L Chloride 99 (98-107) mmol/L Carbon Dioxide 24.7 (21.0-32.0) mmol/L BUN 14 (7.0-18.0) mg/dL Creatinine 0.8 (0.8-1.3) mg/dL Est Cr Clr Drug Dosing 121.30 mL/min Estimated GFR (MDRD) > 60.0 ml/min Glucose 304 H (74-106) mg/dL POC Glucose 260 H (60-110) mg/dL Calcium 8.3 L (8.5-10.1) mg/dL Phosphorus 2.9 (2.6-4.7) mg/dL Magnesium 1.7 L (1.8-2.4) mg/dL Ferritin (26-388) ng/mL Total Bilirubin (0.2-1.0) mg/dL AST (15-37) IU/L ALT (14-63) IU/L Alkaline Phosphatase (46-116) U/L Lactate Dehydrogenase (81-234) U/L Troponin I (0.000-0.056) ng/mL C-Reactive Protein (0.00-0.90) mg/dL Total Protein (6.4-8.2) g/dL Albumin (3.4-5.0) g/dL Globulin (2.6-4.0) g/dL Albumin/Globulin Ratio (0.9-1.6) SARS-CoV-2 RNA (MARYURI) (NEGATIVE) Med Orders - Current: Current Medications Acetaminophen (Tylenol) 325 mg PO Q4H PRN PRN Reason: Pain Last Admin: 06/23/20 12:17 Dose: 325 mg Documented by: Albuterol/Ipratropium (Combivent Respimat) 0 gm INH Q4H PRN PRN Reason: Dyspnea Last Admin: 06/23/20 04:56 Dose: 1 puff Documented by: Azithromycin (Zithromax) 500 mg PO Q24H [facility] Last Admin: 06/22/20 23:28 Dose: 500 mg Documented by: Dexamethasone (Dexamethasone) 6 mg PO DAILY [facility] Last Admin: 06/23/20 11:02 Dose: 6 mg Documented by: Dextrose/Water (Dextrose 50% In Water) 50 ml IV ASDIRECTED PRN PRN Reason: Hypoglycemia Enoxaparin Sodium (Lovenox) 40 mg SUBCUT Q12HR [facility] Last Admin: 06/23/20 08:14 Dose: 40 mg Documented by: Insulin Aspart (Novolog) 0 unit SUBCUT TIDAC [facility]; Protocol Last Admin: 06/23/20 07:53 Dose: 3 units Documented by: Insulin Detemir (Levemir) 80 unit SUBCUT BEDTIME [facility] Last Admin: 06/22/20 23:28 Dose: 80 units Documented by: Sodium Chloride (Saline Flush) 10 ml FLUSH ASDIRECTED PRN PRN Reason: Keep Vein Open Last Admin: 06/22/20 17:10 Dose: 10 ml Documented by: Sodium Chloride (Saline Flush) 2.5 ml FLUSH ASDIRECTED PRN PRN Reason: Keep Vein Open Last Admin: 06/22/20 17:10 Dose: 2.5 ml Documented by: Discontinued Medications Dextrose/Water (Dextrose 50% In Water) 50 ml IV ASDIRECTED PRN PRN Reason: Hypoglycemia Dextrose/Water (Dextrose 50% In Water) 50 ml IV ASDIRECTED PRN PRN Reason: Hypoglycemia Glucagon (Glucagen) 1 mg IM ASDIRECTED PRN PRN Reason: Hypoglycemia Glucagon (Glucagen) 1 mg IM ASDIRECTED PRN PRN Reason: Hypoglycemia Glucagon (Glucagen) 1 mg IM ASDIRECTED PRN PRN Reason: Hypoglycemia Sodium Chloride (Normal Saline) 1,000 mls @ 999 mls/hr IV STAT ONE Stop: 06/22/20 17:19 Last Admin: 06/22/20 17:10 Dose: 999 mls/hr Documented by: Lactated Ringer's (Ringers, Lactated) 1,000 mls @ 125 mls/hr IV ASDIRECTED IOANA Stop: 06/23/20 03:44 Last Admin: 06/22/20 20:36 Dose: 125 mls/hr Documented by: Magnesium Sulfate (Magnesium Sulfate In Water Premix) 2 gm in 50 mls @ 50 mls/hr IV ONETIME ONE Stop: 06/23/20 12:11 Last Admin: 06/23/20 12:19 Dose: 50 mls/hr Documented by: Insulin Aspart (Novolog) 4 unit SUBCUT ONETIME ONE Stop: 06/23/20 21:06 Insulin Aspart (Novolog) 4 unit SUBCUT ONETIME ONE Stop: 06/22/20 21:31 Last Admin: 06/22/20 21:32 Dose: 4 units Documented by: Iopamidol (Isovue Multipack-370 (76%)) 100 ml IVPUSH ONETIME ONE Stop: 06/22/20 18:21 Last Admin: 06/22/20 18:20 Dose: 100 ml Documented by:
[2020-06-23] MEDS ORDERED: Insulin Aspart 100 Units/ML 3 ML Pen SUBCUT ONE (21:05)
== END 2020-06-23 17:00 | disposition home or self-care (01) ==
LOC: MW.ED 15:42 → MW.MS 19:31
PROVIDERS: ADMIT Student in an Organized Health Care Education/Training Program; ATTEND Student in an Organized Health Care Education/Training Program
DX: U07.1 COVID-19 (principal); E11.9 Type 2 diabetes mellitus without complications; I25.10 Atherosclerotic heart disease of native coronary artery without angina pectoris; Z79.899 Other long term (current) drug therapy; Z91.030 Bee allergy status
CPT/HCPCS: 36415; 71275; 80048; 80053; 82728; 82803; 82962; 83615; 83735; 84100; 84484; 85025; 85379; 85652; 86140; 87635; 96361; 96365; 96372; 99285; A9270; G0378; J1650; J1815; J3475; J7030; J7120; J8540; Q9967; 96360; 99217; 99219; 99283; U0002

== ENCOUNTER 2022-03-02 15:52 | Emergency (ER) | payer BC ==
[2022-03-02] MEDS ORDERED: Sodium Chloride 0.9% 2.5 ML Syringe FLUSH PRN (16:04)
[2022-03-02] MEDS ORDERED: Sodium Chloride 0.9% 10 ML Syringe FLUSH PRN (16:04)
[2022-03-02 16:56] LABS: CARBON DIOXIDE,CO2 26.4 mmol/L (21.0-32.0); POTASSIUM,K 4.3 mmol/L (3.5-5.1)
[2022-03-02] MEDS ORDERED: Lactated Ringers 1,000 ML IV STA ×3 (17:12→17:13)
== END 2022-03-02 18:48 | disposition home or self-care (01) ==
LOC: MW.ED 15:52
DX: N17.9 Acute kidney failure, unspecified (principal); E86.0 Dehydration; E11.9 Type 2 diabetes mellitus without complications; I10 Essential (primary) hypertension; E78.00 Pure hypercholesterolemia, unspecified; Z91.030 Bee allergy status; Z79.82 Long term (current) use of aspirin; Z79.899 Other long term (current) drug therapy
CPT/HCPCS: 36415; 80053; 81001; 85025; 87086; 87147; 93005; 96360; 99284; J3490; J7120; 93010

== ENCOUNTER 2022-03-17 17:29 | Emergency (ER) | payer BC ==
[2022-03-17] MEDS ORDERED: Sodium Chloride 0.9% 10 ML Syringe FLUSH PRN (20:40)
[2022-03-17] MEDS ORDERED: Sodium Chloride 0.9% 2.5 ML Syringe FLUSH PRN (20:40)
[2022-03-17] MEDS ORDERED: Sodium Chloride 0.9% 1,000 ML IV ONE ×2 (20:41→22:48)
[2022-03-17 22:32] LABS: CARBON DIOXIDE,CO2 25.4 mmol/L (21.0-32.0); POTASSIUM,K 4.6 mmol/L (3.5-5.1)
[2022-03-17 22:37] LABS: CORONAVIRUS COVID-19 NAA NEGATIVE (NEGATIVE); INFLUENZA A NAA NEGATIVE (NEGATIVE); INFLUENZA B NAA NEGATIVE (NEGATIVE)
[2022-03-17] MEDS ORDERED: cefTRIAXone 1 GM in Sodium Chloride 0.9% 50 ML IV ONE (23:53)
== END 2022-03-18 00:26 | disposition home or self-care (01) ==
LOC: MW.ED 17:29
DX: N39.0 Urinary tract infection, site not specified (principal); R33.9 Retention of urine, unspecified; Z20.822 Contact with and (suspected) exposure to COVID-19; I10 Essential (primary) hypertension; E78.00 Pure hypercholesterolemia, unspecified; E11.9 Type 2 diabetes mellitus without complications; Z91.030 Bee allergy status; Z79.4 Long term (current) use of insulin; Z79.899 Other long term (current) drug therapy
CPT/HCPCS: 0240U; 36415; 71045; 80053; 81001; 82550; 82947; 83605; 83735; 83880; 84484; 85025; 87086; 93005; 96361; 96374; 99285; J0696; J3490; J7030; 87147; 93010; 99283

== ENCOUNTER 2022-06-07 13:45 | Emergency (ER) | payer BC ==
[2022-06-07] MEDS ORDERED: Sodium Chloride 0.9% 1,000 ML IV ONE (14:06)
[2022-06-07 14:38] LABS: HEMOGLOBIN A1C 7.3 %
[2022-06-07 14:55] LABS: CARBON DIOXIDE,CO2 23.6 mmol/L (21.0-32.0); POTASSIUM,K 4.2 mmol/L (3.5-5.1)
[2022-06-07] MEDS ORDERED: Magnesium Oxide 400 MG Tab PO ONE (15:10)
[2022-06-07] MEDS ORDERED: Meclizine 25 MG Tab PO ONE (15:18)
== END 2022-06-07 15:48 | disposition home or self-care (01) ==
LOC: MW.ED 13:45
DX: R42 Dizziness and giddiness (principal); E78.00 Pure hypercholesterolemia, unspecified; I10 Essential (primary) hypertension; E11.9 Type 2 diabetes mellitus without complications; Z91.030 Bee allergy status; Z79.899 Other long term (current) drug therapy; Z79.4 Long term (current) use of insulin; Z90.49 Acquired absence of other specified parts of digestive tract; Z20.822 Contact with and (suspected) exposure to COVID-19
CPT/HCPCS: 36415; 80053; 83036; 83735; 84443; 84484; 85025; 87635; 93005; 96360; 99284; A9270; J7030; 93010; 99283; U0002

== ENCOUNTER 2023-12-24 13:01 | Emergency (ER) | payer BC ==
[2023-12-24 14:19] LABS: APPEARANCE,URINE CLEAR; BILIRUBIN,URINE NEGATIVE (NEGATIVE); COLOR,URINE YELLOW; GLUCOSE,URINE 500 mg/dL (NEGATIVE); KETONES,URINE >=80 mg/dL (NEGATIVE); LEUKOCYTE ESTERASE,URINE NEGATIVE (NEGATIVE); NITRITE,URINE NEGATIVE (NEGATIVE); OCCULT BLOOD,URINE TRACE-INTACT (NEGATIVE); PROTEIN,URINE 100 mg/dL (NEGATIVE); UROBILINOGEN,URINE 0.2 EU/dL (<2.0)
[2023-12-24] MEDS: Sodium Chloride 0.9% 2.5 ML Syringe FLUSH PRN (14:22)
[2023-12-24] MEDS: Sodium Chloride 0.9% 1,000 ML IV STA ×2 (14:22→15:07)
[2023-12-24] MEDS: Albuterol/Ipratropium 3.0-0.5 MG/3 ML Neb Soln NEB STA (14:23)
[2023-12-24] MEDS: Albuterol 0.083% 2.5 MG/3 ML Neb Soln NEB STA (14:23)
[2023-12-24] MEDS: Sodium Chloride 0.9% 10 ML Syringe FLUSH PRN (14:23)
[2023-12-24 14:28] LABS: BASE EXCESS VENOUS 0.5 (-2.0-3.0); BICARBONATE,VENOUS 26 mEQ/mL (22-28); PCO2 VENOUS 44 mmHG (41-51); PH,VENOUS 7.38 (7.31-7.41)
[2023-12-24 14:30] LABS: PO2 VENOUS < 30 mmHG (80-100)
[2023-12-24 14:33] LABS: BASOPHILS ABSOLUTE AUTO 0.03 K/uL (0.00-0.20); BASOPHILS PERCENT AUTO 0.4 % (0.0-1.0); EOSINOPHILS ABSOLUTE AUTO 0.06 K/uL (0.00-0.45); EOSINOPHILS PERCENT AUTO 0.8 % (0.0-6.0); HEMATOCRIT 45.4 % (42.0-52.0); HEMOGLOBIN 15.8 g/dL (14.0-18.0); IMMATURE GRAN ABSOLUTE AUTO 0.04 K/uL (0.00-0.05); IMMATURE GRAN PERCENT AUTO 0.5 % (0.0-0.4); LYMPHOCYTES ABSOLUTE AUTO 1.16 K/uL (1.00-4.80); LYMPHOCYTES PERCENT AUTO 15.1 % (24.0-44.0); MEAN CORPUSCULAR HEMOGLOBIN 29.2 pg (28.0-32.0); MEAN CORPUSCULAR HGB CONC 34.8 g/dL (32.0-36.0); MEAN CORPUSCULAR VOLUME 83.9 fL (83.0-99.0); MEAN PLATELET VOLUME 10.1 fL (9.4-12.4); MONOCYTES PERCENT AUTO 6.5 % (0.0-8.0); NEUTROPHILS ABSOLUTE AUTO 5.88 K/uL (1.80-7.70); NEUTROPHILS PERCENT AUTO 76.7 % (41.0-71.0); PLATELET COUNT,PLT 235 K/uL (150-400); RED BLOOD CELL COUNT 5.41 M/uL (4.52-5.90); WHITE BLOOD CELL COUNT,WBC 7.67 K/uL (3.9-11.3)
[2023-12-24 14:45] LABS: BACTERIA,URINE RARE (NEGATIVE); EPITHELIAL CELLS,URINE RARE (NONE-FEW); RBC,URINE 0-3 (0-2/HPF); WBC,URINE 0-2 (0-5/HPF); YEAST,URINE RARE
[2023-12-24 15:01] LABS: A/G RATIO 0.5 (0.9-1.6); ALBUMIN 2.7 g/dL (3.4-5.0); BILIRUBIN TOTAL 0.6 mg/dL (0.2-1.0); CALCIUM 9.6 mg/dL (8.5-10.1); CARBON DIOXIDE,CO2 25.3 mmol/L (21.0-32.0); CREATININE 1.2 mg/dL (0.8-1.3); EST CRCL DRUG DOSING (CG) 77.06 mL/min; MAGNESIUM 2.1 mg/dL (1.8-2.4); PHOSPHORUS 3.4 mg/dL (2.6-4.7); POTASSIUM,K 4.2 mmol/L (3.5-5.1); PROTEIN TOTAL,TP 8.1 g/dL (6.4-8.2)
[2023-12-24] MEDS: cefTRIAXone 2 GM in Sodium Chloride 0.9% 50 ML IV STA (15:05)
== END 2023-12-24 16:11 | disposition home or self-care (01) ==
LOC: MW.ED 13:01
DX: J18.9 Pneumonia, unspecified organism (principal); H66.92 Otitis media, unspecified, left ear; I25.10 Atherosclerotic heart disease of native coronary artery without angina pectoris; I10 Essential (primary) hypertension; E11.9 Type 2 diabetes mellitus without complications; E78.00 Pure hypercholesterolemia, unspecified; Z75.8 Other problems related to medical facilities and other health care; Z91.030 Bee allergy status; Z79.4 Long term (current) use of insulin; Z79.899 Other long term (current) drug therapy; Z79.84 Long term (current) use of oral hypoglycemic drugs; Z90.49 Acquired absence of other specified parts of digestive tract; Z79.82 Long term (current) use of aspirin
CPT/HCPCS: 36415; 71046; 80053; 81001; 82803; 83690; 83735; 84100; 85025; 94640; 96361; 96365; 99285; J0696; J3490; J7030; 99283; J7620-GY

== ENCOUNTER 2024-05-25 17:28 | Emergency (ER) | payer BC ==
[2024-05-25 18:05] LABS: BASOPHILS ABSOLUTE AUTO 0.04 K/uL (0.00-0.20); BASOPHILS PERCENT AUTO 0.6 % (0.0-1.0); EOSINOPHILS ABSOLUTE AUTO 0.11 K/uL (0.00-0.45); EOSINOPHILS PERCENT AUTO 1.8 % (0.0-6.0); HEMATOCRIT 41.9 % (42.0-52.0); HEMOGLOBIN 13.9 g/dL (14.0-18.0); IMMATURE GRAN ABSOLUTE AUTO 0.02 K/uL (0.00-0.05); IMMATURE GRAN PERCENT AUTO 0.3 % (0.0-0.4); LYMPHOCYTES ABSOLUTE AUTO 1.07 K/uL (1.00-4.80); LYMPHOCYTES PERCENT AUTO 17.2 % (24.0-44.0); MEAN CORPUSCULAR HEMOGLOBIN 29.1 pg (28.0-32.0); MEAN CORPUSCULAR HGB CONC 33.2 g/dL (32.0-36.0); MEAN CORPUSCULAR VOLUME 87.8 fL (83.0-99.0); MEAN PLATELET VOLUME 9.5 fL (9.4-12.4); MONOCYTES ABSOLUTE AUTO 0.33 K/uL (0.00-0.80); MONOCYTES PERCENT AUTO 5.3 % (0.0-8.0); NEUTROPHILS ABSOLUTE AUTO 4.64 K/uL (1.80-7.70); NEUTROPHILS PERCENT AUTO 74.8 % (41.0-71.0); PLATELET COUNT,PLT 233 K/uL (150-400); RED BLOOD CELL COUNT 4.77 M/uL (4.52-5.90); WHITE BLOOD CELL COUNT,WBC 6.21 K/uL (3.9-11.3)
[2024-05-25 18:43] LABS: CORONAVIRUS COVID-19 NAA NEGATIVE (NEGATIVE); INFLUENZA A NAA NEGATIVE (NEGATIVE); INFLUENZA B NAA NEGATIVE (NEGATIVE)
[2024-05-25 18:52] LABS: A/G RATIO 0.9 (0.9-1.6); ALBUMIN 3.4 g/dL (3.4-5.0); BILIRUBIN TOTAL 0.5 mg/dL (0.2-1.0); CALCIUM 9.5 mg/dL (8.5-10.1); CARBON DIOXIDE,CO2 25.5 mmol/L (21.0-32.0); CREATININE 0.8 mg/dL (0.8-1.3); EST CRCL DRUG DOSING (CG) 115.59 mL/min; PROTEIN TOTAL,TP 7.1 g/dL (6.4-8.2)
[2024-05-25] MEDS: Furosemide 20 MG/2 ML VIAL IVPUSH STA (19:14)
== END 2024-05-25 21:25 | disposition home or self-care (01) ==
LOC: MW.ED 17:28
DX: R06.02 Shortness of breath (principal); R60.0 Localized edema; R79.0 Abnormal level of blood mineral; I10 Essential (primary) hypertension; E78.00 Pure hypercholesterolemia, unspecified; E11.9 Type 2 diabetes mellitus without complications; Z90.49 Acquired absence of other specified parts of digestive tract; Z79.899 Other long term (current) drug therapy; Z79.4 Long term (current) use of insulin; Z91.030 Bee allergy status; Z75.8 Other problems related to medical facilities and other health care
CPT/HCPCS: 0240U; 36415; 71046; 80053; 83880; 84484; 85025; 93005; 96374; 99285; J1940; 93010

== ENCOUNTER 2025-01-14 13:35 | Emergency (ER) | payer BC ==
[2025-01-14] MEDS ORDERED: Sodium Chloride 0.9% 2.5 ML Syringe FLUSH PRN (13:57)
[2025-01-14] MEDS ORDERED: Sodium Chloride 0.9% 10 ML Syringe FLUSH PRN (13:57)
[2025-01-14 14:04] LABS: BASOPHILS ABSOLUTE AUTO 0.04 K/uL (0.00-0.20); BASOPHILS PERCENT AUTO 0.4 % (0.0-1.0); EOSINOPHILS ABSOLUTE AUTO 0.07 K/uL (0.00-0.45); EOSINOPHILS PERCENT AUTO 0.7 % (0.0-6.0); HEMATOCRIT 39.2 % (42.0-52.0); HEMOGLOBIN 13.5 g/dL (14.0-18.0); IMMATURE GRAN ABSOLUTE AUTO 0.02 K/uL (0.00-0.05); IMMATURE GRAN PERCENT AUTO 0.2 % (0.0-0.4); LYMPHOCYTES PERCENT AUTO 18.2 % (24.0-44.0); MEAN CORPUSCULAR HEMOGLOBIN 29.6 pg (28.0-32.0); MEAN CORPUSCULAR HGB CONC 34.4 g/dL (32.0-36.0); MEAN PLATELET VOLUME 9.6 fL (9.4-12.4); MONOCYTES ABSOLUTE AUTO 0.57 K/uL (0.00-0.80); MONOCYTES PERCENT AUTO 6.1 % (0.0-8.0); NEUTROPHILS ABSOLUTE AUTO 6.96 K/uL (1.80-7.70); NEUTROPHILS PERCENT AUTO 74.4 % (41.0-71.0); PLATELET COUNT,PLT 209 K/uL (150-400); RED BLOOD CELL COUNT 4.56 M/uL (4.52-5.90); WHITE BLOOD CELL COUNT,WBC 9.36 K/uL (3.9-11.3)
[2025-01-14 14:12] LABS: INR 1.02 (0.86-1.11); PTT,PARTIAL THROMBOPLSTIN TIME 25.9 SEC (23.9-30.7)
[2025-01-14 14:28] LABS: CALCIUM 9.3 mg/dL (8.5-10.1); CARBON DIOXIDE,CO2 24.4 mmol/L (21.0-32.0); CREATININE 1.2 mg/dL (0.8-1.3); EST CRCL DRUG DOSING (CG) 73.98 mL/min; POTASSIUM,K 4.7 mmol/L (3.5-5.1)
[2025-01-14] MEDS: Iopamidol 755 MG/ML 500 ML Multipack Bottle IVPUSH STA (14:39)
[2025-01-14] MEDS: Tenecteplase 50 MG Kit IV STA (16:04)
[2025-01-14] MEDS: Aspirin 81 MG Tab.Chew PO ONE (16:04)
== END 2025-01-14 16:57 ==
LOC: MW.ED 13:35
DX: I21.3 ST elevation (STEMI) myocardial infarction of unspecified site (principal); G45.9 Transient cerebral ischemic attack, unspecified; I10 Essential (primary) hypertension; E11.9 Type 2 diabetes mellitus without complications; Z90.49 Acquired absence of other specified parts of digestive tract; Z79.899 Other long term (current) drug therapy; Z79.82 Long term (current) use of aspirin; Z79.4 Long term (current) use of insulin; Z91.030 Bee allergy status
CPT/HCPCS: 36415; 70450; 70496; 70498; 71275; 74174; 80048; 82947; 84484; 85025; 85610; 85730; 93005; 96374; 99285; A9270; J3101; Q9967; 93010

== ENCOUNTER 2025-05-29 14:36 | Emergency (ER) | payer BC ==
[2025-05-29] MEDS ORDERED: Sodium Chloride 0.9% 10 ML Syringe FLUSH PRN (15:04)
[2025-05-29] MEDS ORDERED: Sodium Chloride 0.9% 2.5 ML Syringe FLUSH PRN (15:04)
[2025-05-29 15:21] LABS: BASOPHILS ABSOLUTE AUTO 0.04 K/uL (0.00-0.20); BASOPHILS PERCENT AUTO 0.5 % (0.0-1.0); EOSINOPHILS ABSOLUTE AUTO 0.11 K/uL (0.00-0.45); EOSINOPHILS PERCENT AUTO 1.4 % (0.0-6.0); IMMATURE GRAN ABSOLUTE AUTO 0.02 K/uL (0.00-0.05); IMMATURE GRAN PERCENT AUTO 0.3 % (0.0-0.4); LYMPHOCYTES ABSOLUTE AUTO 2.19 K/uL (1.00-4.80); LYMPHOCYTES PERCENT AUTO 28.7 % (24.0-44.0); MEAN PLATELET VOLUME 10.4 fL (9.4-12.4); MONOCYTES ABSOLUTE AUTO 0.53 K/uL (0.00-0.80); MONOCYTES PERCENT AUTO 6.9 % (0.0-8.0); NEUTROPHILS ABSOLUTE AUTO 4.75 K/uL (1.80-7.70); NEUTROPHILS PERCENT AUTO 62.2 % (41.0-71.0); NRBC ABSOLUTE 0.00 K/uL (0.00-0.02); NRBC PERCENT 0.0 /100WBC (0.0-0.2); PLATELET COUNT,PLT 213 K/uL (150-400); RED BLOOD CELL COUNT 4.78 M/uL (4.52-5.90); WHITE BLOOD CELL COUNT,WBC 7.64 K/uL (3.9-11.3)
[2025-05-29 15:36] LABS: A/G RATIO 1.2 (0.9-1.6); ALANINE AMINOTRANSFERASE,ALT 131 IU/L (14-63); ASPARTATE AMNIOTRANSFERASE,AST 49 IU/L (15-37); BILIRUBIN TOTAL 0.8 mg/dL (0.2-1.0); BLOOD UREA NITROGEN,BUN 39 mg/dL (7.0-18.0); CARBON DIOXIDE,CO2 25.3 mmol/L (21.0-32.0); CHLORIDE,CL 102 mmol/L (98-107); CREATININE 1.1 mg/dL (0.8-1.3); EST CRCL DRUG DOSING (CG) 83.03 mL/min; ETHANOL BLOOD MEDICAL <3 mg/dL; GLUCOSE RANDOM 119 mg/dL (74-106); POTASSIUM,K 4.9 mmol/L (3.5-5.1); PROTEIN TOTAL,TP 7.3 g/dL (6.4-8.2); SODIUM,NA 140 mmol/L (136-148)
[2025-05-29 15:38] LABS: ESTIMATED GFR 77 mL/min (>60)
[2025-05-29] MEDS: Iopamidol 755 MG/ML 500 ML Multipack Bottle IVPUSH STA (15:58)
[2025-05-29 16:39] LABS: APPEARANCE,URINE CLEAR; GLUCOSE,URINE >=1000 mg/dL (NEGATIVE); OCCULT BLOOD,URINE NEGATIVE (NEGATIVE)
[2025-05-29 16:48] LABS: AMPHETAMINES SCREEN, URINE NEGATIVE (CUTOFF=500); BUPRENORPHINE SCREEN,URINE NEGATIVE (CUTOFF=10); METHADONE SCREEN, URINE NEGATIVE (CUTOFF=200); METHAMPHETAMINES SCREEN, URINE NEGATIVE (CUTOFF=500); OXYCODONE SCREEN,URINE NEGATIVE (CUT0FF=100); PCP SCREEN,URINE NEGATIVE (CUTOFF=25); THC SCREEN,URINE 20 NG/ML NEGATIVE (CUTOFF=50)
== END 2025-05-29 18:09 | disposition home or self-care (01) ==
LOC: MW.ED 14:36
DX: R42 Dizziness and giddiness (principal); R07.9 Chest pain, unspecified; E78.00 Pure hypercholesterolemia, unspecified; I10 Essential (primary) hypertension; E11.9 Type 2 diabetes mellitus without complications; Z91.030 Bee allergy status; Z79.4 Long term (current) use of insulin; Z79.899 Other long term (current) drug therapy; Z79.890 Hormone replacement therapy; Z90.49 Acquired absence of other specified parts of digestive tract
CPT/HCPCS: 36415; 70450; 70496; 70498; 71045; 80053; 80305; 80307; 81003; 83735; 84484; 85025; 93005; 96360; 96361; 99285; A9270; J7030; Q9967; 93010; 99284